=== PATIENT | male | born 1960 | race Caucasian/White ===

== ENCOUNTER 2021-04-05 12:11 | Emergency (ER) | payer OTHER, SELFPAY ==
[2021-04-05 12:12] VITALS: BP 133/82; PULSE 110; RESP 18; TEMP 36.5; O2SAT 100; BMI 20.5
--- NOTE | 2021-04-05 12:38 | EDS_ITS ---
HPI History of Present Illness Chief Complaint: Allergic Reaction Detail of Chief Complaint: Bee sting with allergic reaction Informant: patient Narrative Narrative: Patient presents to the emergency department complaint of a bee sting to the right lower back that occurred about 40 minutes ago. Patient states that he was at [employer] when a bee went under his shirt and stung him. He states that he had a severe reaction 15 years ago where his lips became swollen. He does have an EpiPen at home but did not have one with him. At this time he describes some numbness and tingling to the lower lip but no difficulty breathing. He denies feeling lightheaded or dizzy. He denies shortness of breath. Prior similar symptoms: Yes PFSH PFSH Medical History no medical history Home Medications epinephrine [EpiPen] 0.3 mg IM Q10M PRN PRN #2 ea 04/05/21 [Rx Last Taken Unknown] prednisone 20 mg PO BID #6 tab 04/05/21 [Rx Last Taken Unknown] Allergy/AdvReac Type Severity Reaction Status Date / Time bee venom protein (honey bee) Allergy Swelling Verified 04/05/21 12:14 Surgical History no surgical history Social History Smoking Status: Never smoker ROS ROS ED ROS Narrative Tingling to lower lip Constitutional Constitutional ED: Reports systems reviewed and no addt'l complaints, except as documented; Denies body ache(s), change in weight or chills Eyes Eyes: Denies acute decrease in peripheral vision, change in vision, double vision or loss of vision ENT ENT ED: Reports none; Denies ear pain, lip swelling, loss taste/smell, neck pain, otalgia or sore throat Cardiovascular Cardiovascular: Reports none; Denies abdominal pain, chest pain with activity, leg edema, lightheadedness, palpitations, rapid heart rate or syncope Respiratory/Chest Respiratory/Chest: Reports none; Denies change in mental status, dry cough, dyspnea, hemoptysis, shortness of breath at rest or shortness of breath with exertion Gastrointestinal Gastrointestinal: Reports none; Denies abdominal pain, change in stool character, diarrhea, hematemesis, hematochezia, melena, rectal bleeding or vomiting Genitourinary Genitourinary ED: Reports none; Denies abdominal discomfort, anuria, dysuria, genital pain or polyuria Musculoskeletal Musculoskeletal: Reports none; Denies arthralgias, back pain, difficulty wa lking, extremity pain, muscle weakness or myalgias Integumentary Reports none, rash and other Details: Local erythema and swelling to the right lower back ; Denies abscess Neurologic Neurologic: Reports none; Denies abnormal gait, confusion, focal weakness, frequent falls, headache(s), loss of vision, numbness, paresthesias, radicular pain, vertigo or weakness Psychiatric Psychiatric: Reports systems reviewed and no addt'l complaints, except as documented and none; Denies behavioral changes, confusion, difficulty concentrating, hallucinations, suicidal ideation, tactile hallucinations or visual hallucinations Endocrine Endocrinology: Denies none, cold intolerance, excessive sweating, fatigue or heat intolerance Hematologic/Lymphatic Hematologic/Lymphatic: Reports none; Denies anemia, easy bleeding or easy bruising Allergic/Immunologic Allergic/Immunologic ED: Denies as per HPI, none, lip swelling, mouth swelling, throat swelling, tongue swelling or hives EXAM Physical Exam Const Vital Signs: 04/05/21 12:12 04/05/21 14:00 Temperature 97.7 F L Temperature Source Temporal Pulse Rate 110 H 94 Respiratory Rate 18 16 Blood Pressure 133/82 H 123/71 H Blood Pressure Mean 99 88 Pulse Ox 100 100 Oxygen Delivery Method Room Air Room Air Positive well nourished and well developed General Appearance ED: well developed and NAD HEENT Reports TM's clear and moist mucous membranes HEENT Narrative: No angioedema of the lips, tongue, or oropharynx noted. normocephalic and atraumatic; Negative for trauma or tenderness Tympanic Membrane ED: Yes TM's clear Eyes PERRL and EOMs intact bilaterally General Eye ED: Negative for pale conjunctiva or scleral icterus Neck no lymphadenopathy, supple and no JVD General: Negative for tenderness Chest Wall inspection of chest normal and palpation of chest normal Chest: Negative for tenderness Resp normal respiratory effort and clear to auscultation bilaterally Effort and Inspection: Negative for respiratory distress or pain with movement Auscultation: Negative for rhonchi, wheezes or diminished lung sounds Cardio regular rate, regular rhythm, S1 normal heart sound, S2 normal heart sound and no murmurs Peripheral Pulses: pulses 2+ throughout GI normal to inspection, nondistended, normoactive bowel sounds, soft to palpation, non-tender, non-distended and no masses Back/Spine no CVA tenderness and no thoracic nor lumbar tenderness Extremity normal to inspection General Extremety ED: Negative for edema General Extremity: Negative for edema Neuro oriented x3, CN's II-XII intact bilaterally, no sensory deficits noted and gait normal Sensorium / Orientation: awake, alert, oriented to person, oriented to place and oriented to time Motor Exam: strength 5/5 throughout and strength abnormal Psych mental status grossly normal Skin no rashes or lesions noted and no wounds Skin Narrative: Local faint erythema to the right lower back with a slightly raised area of urticaria measuring approximately 2.5 cm in diameter MDM MDM MDM Narrative Medical decision making narrative: Patient was observed in the emergency department for 2 hours and he had essentially resolution of his lip tingling. There was no angioedema. No difficulty breathing. He continues to have a small welt to the right lower back which has not increased in size. Patient will be discharged home with a prescription for prednisone and a prescription for an EpiPen. Patient to return if lip or tongue swelling, difficulty breathing, or condition should worsen anyway. Discharge Plan Triage Chief Complaint: Allergic Reaction ED Provider: Carlos Hicks Dx/Rx/DC Orders Clinical Impression: Allergic reaction to bee sting Instructions: ED BEE STING General Allergic Rxn Prescriptions: New epinephrine [EpiPen] 0.3 mg/0.3 mL auto-injector 0.3 mg IM Q10M PRN PRN (Reason: anaphylaxis) Qty: 2 RF: 0 prednisone 20 mg tablet 20 mg PO BID Qty: 6 RF: 0 Primary Care Provider: Morgan Vazquez Referrals: Morgan Vazquez MD [Primary Care Provider] - As Needed Disposition Disposition: Home, Self Care
[2021-04-05] MEDS: Famotidine 20 MG Tablet PO (12:49)
[2021-04-05] MEDS: predniSONE 20 MG Tablet 60 MG PO (12:49)
[2021-04-05] MEDS: DiphenhydrAMINE 25 MG Capsule 50 MG PO (12:49)
[2021-04-05 14:00] VITALS: BP 123/71; PULSE 94; RESP 16; O2SAT 100
--- NOTE | 2021-04-05 14:11 | ED.RN ---
Patient alert and without difficulty. Denies respiratory or swallowing difficulties.
== END 2021-04-05 15:05 | disposition home or self-care (01) ==
PROVIDERS: Emergency Provider Emergency Medicine; PCP Family Medicine
DX: T63.441A Toxic effect of venom of bees, accidental (unintentional), initial encounter (principal)
CPT/HCPCS: 99283